=== PATIENT | male | born 1990 | race Caucasian/White ===

== ENCOUNTER 2018-05-23 13:53 | Emergency (ER) | payer OTHER ==
[~2018-05-23] VITALS: Ht 180.3 cm; Wt 70.3 kg
[2018-05-23] MEDS ORDERED: ZYRTEC10 M5 PO (15:04)
[2018-05-23] MEDS ORDERED: PREDNISONE 10 M10 M1 PO (16:36)
[2018-05-23] MEDS ORDERED: ALBUTEROL2.5 MG/31 INH (16:36)
[2018-05-23 16:47] VITALS: BP 134/79
== END 2018-05-23 16:48 | disposition home or self-care (01) ==
LOC: ER 13:53
DX: J45.901 Unspecified asthma with (acute) exacerbation (principal)

== ENCOUNTER 2018-05-27 05:06 | Emergency (ER) | payer OTHER ==
[~2018-05-27] VITALS: Ht 180.3 cm; Wt 70.3 kg
[~2018-05-27 05:06] MED LIST: ALBUTEROL2.5 MG/31 INH; PREDNISONE 10 M10 M1 PO; ZYRTEC10 M5 PO
[2018-05-27] MEDS ORDERED: PREDNISONE50 MG PO (06:01)
[2018-05-27] MEDS ORDERED: ALBUTEROL2.5 MG/31 INH (06:01)
[2018-05-27 06:09] VITALS: BP 129/80
== END 2018-05-27 06:17 | disposition home or self-care (01) ==
LOC: ER 05:06
DX: J45.909 Unspecified asthma, uncomplicated (principal)

== ENCOUNTER 2018-06-06 20:17 | Emergency (ER) | payer OTHER ==
[~2018-06-06] VITALS: Ht 182.9 cm; Wt 70.3 kg
[~2018-06-06 20:17] MED LIST changes: +PREDNISONE50 MG PO
[2018-06-06] MEDS ORDERED: PREDNISONE 20 M20 MG PO (22:45)
[2018-06-06] MEDS ORDERED: PROVENTIL HFA6.7 G1 INH (22:45)
[2018-06-06 23:00] VITALS: BP 142/68
== END 2018-06-06 22:54 | disposition home or self-care (01) ==
LOC: ER 20:17
DX: J45.901 Unspecified asthma with (acute) exacerbation (principal)